=== PATIENT | male | born 1990 | race Caucasian/White ===

== ENCOUNTER 2020-10-07 21:53 | Emergency (ER) | payer SELFPAY ==
[~2020-10-07] VITALS: Ht 162.6 cm; Wt 63.0 kg
[2020-10-07] MEDS ORDERED: LORAZEPAM 1MG TABLET PO ONE (22:45)
[2020-10-07] MEDS ORDERED: ONDANSETRON 4MG ODT PO ONE (22:45)
[2020-10-08 00:23] LABS: CHLORIDE 105 mEq/L (98-107)
[2020-10-08 00:24] LABS: BASOPHILS % 0.2 % (0.0-2.0); EOSINOPHILS % 0.9 % (0.0-5.0); HEMATOCRIT. 42.3 % (42.0-52.0); HEMOGLOBIN. 13.9 g/dL (14.0-18.0); LYMPHOCYTES % 17.9 % (20.0-50.0); MEAN CORPUSCULAR HEMOGLOBIN 28.8 pg (28.0-32.0); MEAN CORPUSCULAR VOLUME 87.2 fL (80.0-94.0); MEAN PLATELET VOLUME 8.2 fl (7.4-10.4); MONOCYTES % 7.2 % (2.0-8.0); NEUTROPHILS % 73.8 % (40.0-76.0); PLATELET 277 x1000/uL (130-400); RED BLOOD CELL COUNT 4.84 mill/uL (4.7-6.1); RED CELL DISTRIBUTION WIDTH 12.9 % (11.6-14.6)
[2020-10-08 00:30] LABS: ETHANOL BLOOD < 10 mg/dL
[2020-10-08 02:07] LABS: CLARITY URINE CLEAR (CLEAR); COLOR URINE YELLOW (YELLOW); KETONES URINE 3+ (NEGATIVE); LEUKOCYTE ESTERASE URINE 1+ (NEGATIVE); NITRITE URINE NEGATIVE (NEGATIVE); OCCULT BLOOD URINE NEGATIVE (NEGATIVE); PH URINE 5.5 (4.5-8.0); PROTEIN URINE TRACE (NEGATIVE); SPECIFIC GRAVITY URINE 1.035 (1.005-1.030)
[2020-10-08 02:20] LABS: *BENZODIAZEPINES SCREEN URINE NEGATIVE (NEGATIVE); METHADONE URINE SCREEN NEGATIVE (NEGATIVE); OPIATES URINE SCREEN PRESUMTIVE POSITIVE (NEGATIVE)
[2020-10-08 02:21] LABS: *AMPHETAMINES SCREEN URINE NEGATIVE (NEGATIVE); *BARBITURATES SCREEN URINE NEGATIVE (NEGATIVE); *COCAINE SCREEN URINE PRESUMTIVE POSITIVE (NEGATIVE); CANNABINOID URINE SCREEN PRESUMTIVE POSITIVE (NEGATIVE); PHENCYCLIDINE URINE SCREEN NEGATIVE (NEGATIVE)
[2020-10-08] MEDS: RISPERIDONE 1MG TABLET PO SCH (10:30)
[2020-10-09] MEDS: RISPERIDONE 1MG TABLET PO SCH (10:11)
[2020-10-09] MEDS ORDERED: RISP1 MT (11:14)
[2020-10-09 18:12] VITALS: BP 111/71
== END 2020-10-09 18:48 | disposition home or self-care (01) ==
LOC: ER 21:53
DX: R45.851 Suicidal ideations (principal); F14.10 Cocaine abuse, uncomplicated; F14.129 Cocaine abuse with intoxication, unspecified; F11.10 Opioid abuse, uncomplicated; F32.9 Major depressive disorder, single episode, unspecified; Z20.822 Contact with and (suspected) exposure to COVID-19
CPT/HCPCS: 36415; 71045; 80053; 80307; 80320; 80329; 85025; 93005; 99285; C9803; Q0162; U0003; G0480